=== PATIENT | female | born 1990 ===

== ENCOUNTER → 2020-12-13 | Outpatient (CLI) | payer OTHER | END | disposition home or self-care (01) | LOC: EDSEX → PPH VACUNA | DX: Z23 Encounter for immunization (principal) ==

== ENCOUNTER 2021-01-12 08:00 | Outpatient (CLI) | payer OTHER | END 2021-01-12 08:30 | disposition home or self-care (01) | LOC: PPH VACUNA 08:00 | DX: Z23 Encounter for immunization (principal) ==